=== PATIENT | female | born 1960 | race Caucasian/White ===

== ENCOUNTER 2024-08-17 16:50 | Emergency (ER) | payer OTHER ==
[~2024-08-17] VITALS: Ht 165.1 cm; Wt 81.8 kg
[2024-08-17] MEDS ORDERED: ISOVUE-370 76% 100ML VIAL As Ordered ONE (17:09)
[2024-08-17] MEDS: LABETALOL 100MG/20ML VIAL IV STA ×2 (18:07→18:50)
[2024-08-17 18:09] LABS: BASO # 0.1 10^3/uL (0.0-0.2); BASO % 0.6 % (0.0-1.0); EOS # 0.1 10^3/uL (0.0-0.5); EOS % 0.8 % (0.0-3.0); HEMATOCRIT 45.5 % (36.0-47.0); LYMPH # 1.9 10^3/uL (1.5-5.0); LYMPH % 22.6 % (24.0-44.0); MEAN CORPUSCULAR HEMOGLOBIN 29.9 pg (27.0-33.0); MEAN CORPUSCULAR VOLUME 90.6 fl (80.0-96.0); MONO # 0.5 10^3/uL (0.0-0.8); MONO % 5.7 % (2.0-8.0); NEUTROPHILS % 70.1 % (36.0-66.0); PLATELET COUNT, AUTOMATED 275 10^3/uL (150-450); RED BLOOD COUNT 5.02 10^6/uL (4.00-5.40); WHITE BLOOD COUNT 8.6 10^3/uL (4.0-10.0)
[2024-08-17 18:14] LABS: INR 0.86; PARTIAL THROMBOPLASTIN TIME 24.1 SECONDS (24.8-34.2); PROTHROMBIN TIME 12.1 SECONDS (12.5-14.5)
[2024-08-17 18:16] LABS: ALBUMIN 4.2 G/DL (3.2-5.2); ALKALINE PHOSPHATASE 88 U/L (35-104); ALT/SGPT 26 U/L (7.0-40); AST/SGOT 27 U/L (<34); BILIRUBIN,DIRECT < 0.1 MG/DL (<0.4); BILIRUBIN,TOTAL 0.3 MG/DL (0.3-1.2); MAGNESIUM LEVEL 2.2 MG/DL (1.8-2.4); TOTAL PROTEIN 7.6 G/DL (5.7-8.2)
[2024-08-17 18:18] LABS: FREE T4 1.29 NG/DL (0.89-1.76); THYROID STIMULATING HORMONE 1.339 uIU/ML (0.55-4.78)
[2024-08-17] MEDS ORDERED: LABETALOL HCL 200 MG in NS 160 ML IV SCH ×2 (18:35→19:00)
[2024-08-17] MEDS ORDERED: LABETALOL HCL 200 MG in D5W 160 ML IV SCH (18:45)
[2024-08-17 18:50] VITALS: BP 160/94
[2024-08-17 20:05] VITALS: BP 143/79; TEMP 98.6; O2SAT 97
== END 2024-08-17 20:26 | disposition short-term general hospital (02) ==
LOC: M ED 16:50
DX: I77.74 Dissection of vertebral artery (principal); I67.2 Cerebral atherosclerosis; E04.1 Nontoxic single thyroid nodule; I10 Essential (primary) hypertension
CPT/HCPCS: 70450; 70496; 70498; 80047; 80076; 83735; 84439; 84443; 85025; 85610; 85730; 93005; 96374; 96376; 99285; J1920; Q9967

== ENCOUNTER → 2024-11-22 | Outpatient (REF) | payer OTHER ==
[2024-11-22 15:34] LABS: CALCIUM LEVEL 9.6 MG/DL (8.3-10.6); CARBON DIOXIDE LEVEL 31.0 MMOL/L (20-31); CHLORIDE LEVEL 102.0 MMOL/L (98-107); CREATININE FOR GFR 0.82 MG/DL (0.55-1.30); GLOMERULAR FILTRATION RATE 79.8 (>45); POTASSIUM SERUM 4.3 MMOL/L (3.5-5.1); SODIUM LEVEL 141.0 MMOL/L (136-145)
== END ==
LOC: M LABWUC 14:40
PROVIDERS: ATTEND Psychiatry & Neurology Neurology
DX: I77.74 Dissection of vertebral artery (principal)